=== PATIENT | male | born 1955 | race Caucasian/White ===

== ENCOUNTER 2017-06-23 20:42 | Emergency (ER) | payer MEDICAID ==
[~2017-06-23] VITALS: Ht 180.3 cm; Wt 81.6 kg
[2017-06-23 21:48] LABS: Basophils # (auto) 0.1 uL; Basophils % (auto) 1.2 % (0.0-2.0); Eosinophils # (auto) 0.1 uL; Eosinophils % (auto) 1.9 % (0.0-7.0); Hematocrit 50.5 % (41.0-53.0); Hemoglobin 17.4 g/dL (13.5-17.5); Lymphocytes # (auto) 1.3 uL; Lymphocytes % (auto) 17.9 % (10.0-50.0); Mean Corpuscular Hemoglobin 32.6 pg (28.0-32.0); Mean Corpuscular Hgb Conc. 34.5 g/dL (32.0-36.0); Mean Corpuscular Volume 94.3 fL (80.0-100.0); Mean Platelet Volume 8.5 fL (6.9-10.8); Monocytes # (auto) 0.6 uL; Neutrophils # (auto) 5.3 uL; Nucleated Red Blood Cells % 0.1 %; Platelet Count (auto) 304 10^3/uL (140-450); Red Cell Distribution Width 13.6 % (11.8-14.3); White Blood Cell 7.4 10^3/uL (4.4-10.8)
[2017-06-23 22:17] LABS: Alkaline Phosphatase 83 U/L (45-117); Anion Gap 9 (5-15); Aspartate Aminotransferase 27 U/L (15-37); BUN/Creatinine Ratio 17.1; Bilirubin, Total 0.5 mg/dL (0.2-1.0); Blood Urea Nitrogen 21 mg/dL (7-18); Calcium 9.3 mg/dL (8.5-10.1); Carbon Dioxide 23 mmol/L (21-32); Chloride 104 mmol/L (98-107); GFR African American 77 mL/min; GFR Non-African American 64 mL/min; Glucose 144 mg/dL (74-106); Potassium 3.6 mmol/L (3.5-5.1); Sodium 136 mmol/L (136-145)
[2017-06-23 23:49] VITALS: BP 145/111
[2017-06-24 00:18] LABS: B-Type Natriuretic Peptide 25.7 pg/mL (0-100); Temperature: 20.7 C (20.0-25.0)
[2017-06-24 00:39] LABS: INR 0.98 (0.9-1.15); Partial Thromboplastin Time 25.8 sec (22.64-33.71); Prothrombin Time 10.7 sec (9.37-12.3)
[2017-06-24] MEDS ORDERED: MECLIZINE HCL 25 MG TAB PO ONE (01:45)
== END 2017-06-24 01:54 | disposition home or self-care (01) ==
LOC: ER 20:47
DX: E86.0 Dehydration (principal); I95.9 Hypotension, unspecified; I10 Essential (primary) hypertension; Z88.0 Allergy status to penicillin
CPT/HCPCS: 36415; 70450; 71010; 80053; 83735; 83880; 84484; 85025; 85610; 85730; 93005; 99285; J8597

== ENCOUNTER 2024-02-04 11:44 | Emergency (ER) | payer OTHER, MEDICAID ==
[~2024-02-04] VITALS: Ht 180.3 cm; Wt 79.4 kg
[~2024-02-04 11:44] MED LIST: IBUP-1456 PO; METH-1182 PO
[2024-02-04 12:54] LABS: Basophils # (auto) 0.1 10 ^3/uL (0-0.2); Basophils % (auto) 0.7 % (0.0-2.0); Eosinophils # (auto) 0.1 10 ^3/uL (0-0.8); Hematocrit 49.1 % (41.0-53.0); Hemoglobin 16.3 g/dL (13.5-17.5); Lymphocytes # (auto) 1.1 10 ^3/uL (0.4-5.4); Lymphocytes % (auto) 13.4 % (10.0-50.0); Mean Corpuscular Hemoglobin 32.3 pg (28.0-32.0); Mean Corpuscular Hgb Conc. 33.2 g/dL (32.0-36.0); Mean Corpuscular Volume 97.1 fL (80.0-100.0); Monocytes # (auto) 0.8 10 ^3/uL (0-1.3); Monocytes % (auto) 9.9 % (0.0-12.0); Neutrophils # (auto) 5.9 10 ^3/uL (1.6-8.6); Red Blood Cells 5.06 10^6/uL (4.5-5.90); Red Cell Distribution Width 13.4 % (11.8-14.3); White Blood Cell 7.9 10^3/uL (4.4-10.8)
[2024-02-04] MEDS: IOHEXOL 350 MG/ML 100ML IJ ONE (14:39)
[2024-02-04 15:29] LABS: Alanine Aminotransferase 21 U/L (7-40); Albumin 4.8 g/dL (3.2-4.8); Alkaline Phosphatase 70 U/L (46-116); Anion Gap 9 (5-15); Aspartate Aminotransferase 24 U/L (13-40); Blood Urea Nitrogen 15 mg/dL (9-23); Calcium 10.2 mg/dL (8.5-10.1); Carbon Dioxide 25 mmol/L (20-30); Chloride 106 mmol/L (98-107); Glucose 115 mg/dL (74-106); Potassium 4.3 mmol/L (3.5-5.1); Sodium 140 mmol/L (136-145)
[2024-02-04 15:30] LABS: Bilirubin, Total 1.2 mg/dL (0.2-1.0); Total Protein 7.4 g/dL (5.7-8.2)
[2024-02-04 20:10] VITALS: PULSE 67; RESP 16; O2SAT 97
[2024-02-04 20:20] VITALS: BP 138/94; PULSE 67; RESP 16; O2SAT 97
== END 2024-02-04 20:22 | disposition home or self-care (01) ==
LOC: ER 11:44
DX: I71.20 Thoracic aortic aneurysm, without rupture, unspecified (principal); R79.9 Abnormal finding of blood chemistry, unspecified; I10 Essential (primary) hypertension; Z88.0 Allergy status to penicillin
CPT/HCPCS: 36415; 71045; 71260; 74177; 80053; 83735; 84484; 85025; 85379; 99285; Q9967

== ENCOUNTER 2024-10-03 07:15 | Day surgery (SDC) | payer OTHER, MEDICAID ==
[2024-09-25 11:26] LABS: Basophils # (auto) 0.1 10 ^3/uL (0-0.2); Basophils % (auto) 0.8 % (0.0-2.0); Eosinophils # (auto) 0 10 ^3/uL (0-0.8); Eosinophils % (auto) 0.6 % (0.0-7.0); Hematocrit 47.2 % (41.0-53.0); Hemoglobin 16.2 g/dL (13.5-17.5); Lymphocytes # (auto) 0.8 10 ^3/uL (0.4-5.4); Mean Corpuscular Hemoglobin 33.6 pg (28.0-32.0); Mean Corpuscular Hgb Conc. 34.3 g/dL (32.0-36.0); Mean Corpuscular Volume 97.9 fL (80.0-100.0); Monocytes # (auto) 0.8 10 ^3/uL (0-1.3); Monocytes % (auto) 10.7 % (0.0-12.0); Neutrophils # (auto) 5.4 10 ^3/uL (1.6-8.6); Neutrophils % (auto) 75.9 % (37.0-80.0); Platelet Count (auto) 253 10^3/uL (140-450); Red Blood Cells 4.82 10^6/uL (4.5-5.90); Red Cell Distribution Width 13.3 % (11.8-14.3); White Blood Cell 7.1 10^3/uL (4.4-10.8)
[2024-09-25 11:29] LABS: INR 1.05 (0.9-1.15); Partial Thromboplastin Time 25.3 SEC (24.5-34.5); Prothrombin Time 11.1 sec (9.3-11.8)
[2024-09-25 11:42] LABS: Alanine Aminotransferase 23 U/L (7-40); Albumin 4.7 g/dL (3.2-4.8); Alkaline Phosphatase 73 U/L (46-116); Anion Gap 7 (5-15); Aspartate Aminotransferase 20 U/L (13-40); BUN/Creatinine Ratio 12.9 (10.0-20.0); Blood Urea Nitrogen 15 mg/dL (9-23); Calcium 10.3 mg/dL (8.7-10.4); Carbon Dioxide 29 mmol/L (20-31); Chloride 103 mmol/L (98-107); Potassium 3.8 mmol/L (3.5-5.1); Sodium 139 mmol/L (136-145); Total Protein 7.2 g/dL (5.7-8.2)
[2024-09-25 11:48] LABS: Bilirubin, Total 1.3 mg/dL (0.2-1.0); Glucose 118 mg/dL (74-106)
[~2024-10-03] VITALS: Ht 180.3 cm; Wt 70.3 kg
[~2024-10-03 07:15] MED LIST changes: +ALBUAER3 IN; +ATOR20TA PO; +BENA20TA12 PO; +LORA-1121 PO; +MECL1TAB42 PO; +TRAZ-228 PO
[2024-10-03] MEDS ORDERED: SODIUM CHLORIDE LOCK 10 ML ONE (07:53)
[2024-10-03] MEDS: LIDOCAINE VISCOUS 2% 15ML UD ONE (08:12)
[2024-10-03] MEDS: fentaNYL CITRATE 100 MCG/2 ML VL ONE (08:13)
[2024-10-03] MEDS: MIDAZOLAM HCL 5 MG/ML-1ML VIAL ONE (08:13)
[2024-10-03] MEDS: diphenhdrAMINE HCL 50 MG/1 ML VL ONE (08:13)
[2024-10-03 08:23] VITALS: PULSE 83; RESP 16; TEMP 97.7; O2SAT 97
--- NOTE | 2024-10-03 08:27 | DVHOP2 ---
Operative Report DATE OF OPERATION: 10/03/24 PROCEDURE: Upper Endoscopy with biopsy. PREOPERATIVE INDICATION: The patient is a 69 -year-old male undergoing endoscopy for chronic GERD and heartburn POSTOPERATIVE DIAGNOSES: 1. Patient had a 1 cm sliding-type hiatal hernia with irregular squamocolumnar junction and grade a erosive esophagitis at the GE junction from which biopsies were obtained 2. Mild gastroduodenitis with hyperemia erythema from which biopsies were obtained PROCEDURE PERFORMED BY: Senia Avila GI NURSE: Laura SCOPE: Olympus videoendoscope. ASA CLASS: 2. PREOPERATIVE MEDICATIONS: Versed 2 mg, Fentanyl 25 mcg, Benadryl 50 mg I administered moderate sedation throughout this _7_ minutes procedure. An independent trained observer pushed medications at my direction, and monitored the patient's level of consciousness and physiological status throughout. PROCEDURE IN DETAIL: After obtaining an informed consent, the patient was placed on left lateral decubitus position. The patient was then sedated with the above medications. A bite block was placed between his teeth. The endoscope was then passed through the oropharynx, into the esophagus, and through the stomach and pylorus up to the second and third part of the duodenum. The endoscope was then withdrawn. The 2nd and 3rd part of the duodenal were normal. Duodenal bulb and postbulbar area showed mild duodenitis. Duodenal biopsies were obtained. The pre-pyloric area and antrum showed mild antral gastritis with superficial erosions The patient also had mild gastritis in the body of the stomach. Gastric biopsies were obtained. On retroflexion a hiatal hernia was noted. The endoscope was then straightened withdrawn into the distal esophagus. Patient had a 1-2 cm sliding-type hiatal hernia with irregular squamocolumnar junction and grade a erosive esophagitis with superficial ulceration GE junction biopsies were obtained. The remaining distal and proximal esophagus and oropharynx were unremarkable The patient tolerated the procedure well without difficulty. COMPLICATIONS : None SPECIMENS: Duodenal biopsies Gastric biopsies GE junction biopsies DISPOSITION: Stable D/C to home PLAN: 1. Await for biopsy result 2. Will place pt on Protonix or Prilosec 20 mg p.o. daily 3. Lifestyle and dietary modifications for GERD 4. Resume GI soft diet advance as tolerated 5. Outpatient follow up with me in 4-6 weeks to review results and discuss further management SENIA AVILA MD Oct 03, 2024 08:27
[2024-10-03 08:50] VITALS: BP 91/64; PULSE 53; RESP 18; O2SAT 96
== END 2024-10-03 09:37 | disposition home or self-care (01) ==
LOC: GI 07:15
PROVIDERS: ATTEND Internal Medicine Gastroenterology
DX: R12 Heartburn (principal); K21.00 Gastro-esophageal reflux disease with esophagitis, without bleeding; K22.10 Ulcer of esophagus without bleeding; K44.9 Diaphragmatic hernia without obstruction or gangrene; K29.50 Unspecified chronic gastritis without bleeding; J45.909 Unspecified asthma, uncomplicated; F41.9 Anxiety disorder, unspecified; Z88.0 Allergy status to penicillin; Z90.49 Acquired absence of other specified parts of digestive tract; Z98.890 Other specified postprocedural states
CPT/HCPCS: 36415; 43239; 80053; 85025; 85610; 85730; 88305; 88312; 88342; J1200; J2250; J3010; J7030

== ENCOUNTER 2025-02-03 16:17 | Inpatient (IN) | payer OTHER, MEDICAID ==
[~2025-02-03] VITALS: Ht 180.3 cm; Wt 69.4 kg
[2025-02-03] MEDS: ASPirin 81 mg TAB PO ONE (16:45)
--- NOTE | 2025-02-03 16:46 | ED.PDOC ---
HPI Comments This is a 69-year-old male who comes in with chief complaint of chest pain which started last night. The pain has been somewhat off and on. He states that it is substernal and dull in nature. He states that the pain is an 8/10. Denies any shortness a breath, nausea or vomiting. The patient also denies any fever or cough. 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 Upon arrival, the patient was able to ambulate into the emergency department's without any difficulty. Chief Complaint: Chest Pain Time Seen by MD: 16:25 Primary Care Provider: UNKNOWN Reviewed Notes: Nurses Notes, Medications, Allergies (Allergies to penicillin) Allergies: Coded Allergies: Penicillins (Verified Allergy, Unknown, 06/23/17) Home Meds Active Scripts Methocarbamol (Methocarbamol) 750 Mg Tab, 750 MG PO BID, #20 TAB Prov:LESLEY KENNY 12/13/23 Ibuprofen (Ibuprofen) 800 Mg Tab, 1 TAB PO TID, #30 TAB Prov:LESLEY KENNY 12/13/23 Reported Medications Albuterol Sulfate (VENTOLIN MDI) 90 Mcg Ih, 90 MCG IN PRN, INH 09/25/24 Meclizine HCl (Meclizine 25) 25 Mg Tab, 25 MG PO, TAB 09/25/24 Lorazepam (ATIVAN TABLET) 0.5 Mg Tb, 0.5 MG PO, TAB 09/25/24 Atorvastatin Calcium (Lipitor) 20 Mg Tab, 20 MG PO DAILY, TAB 09/25/24 Benazepril & Hydrochlorothiazi (Benazepril Hcl/Hydrochlor) 1 Tab Tab, 1 TAB PO QAM, TAB 09/25/24 Trazodone Hcl (Trazodone Hcl) 100 Mg Tab, 100 MG PO QPM, TAB 09/25/24 Information Source: Patient Mode of Arrival: Ambulatory Severity: Moderate Timing: Hours Duration: Since onset Prehospital treatment: None Location: Substernal Radiation: No Radiation Quality: Other (Dull type chest pain) Onset: At Rest Cardiac Risk Factors: Hyperlipidemia, HTN PE Risk Factors: None History of: Similar pain in past Modifying Factors: Nothing Associated Signs and Symptoms: None Past Medical History PAST MEDICAL HISTORY: Anxiety, CAD, High Lipids, HTN Surgical History: Denies all surgeries Surgical History (Other): Carpal tunnel surgery on the left wrist Family History Family History: Reviewed,noncontributory to illness, Family hx of Cancer Social History Smoker: Non-Smoker Alcohol: Denies ETOH Use Drugs: Denies Drug Use Lives In: Home Constitutional: denies: chills, diaphoresis, fatigue, fever, malaise, sweats, weakness, others EENTM: denies: blurred vision, double vision, ear bleeding, ear discharge, ear drainage, ear pain, ear ringing, eye pain, eye redness, hearing loss, mouth pain, mouth swelling, nasal discharge, nose bleeding, nose congestion, nose pain, photophobia, tearing, throat pain, throat swelling, voice changes, others Respiratory: denies: cough, hemoptysis, orthopnea, SOB at rest, shortness of breath, SOB with excertion, stridor, wheezing, others Cardiovascular: reports: chest pain; denies: dizzy spells, diaphoresis, Dyspnea on exertion, edema, irregular heart beat, left arm pain, lightheadedness, palpitations, PND, syncope, others Gastrointestinal: denies: abdomen distended, abdominal pain, blood streaked bowels, constipated, diarrhea, dysphagia, difficulty swallowing, hematemesis, melena, nausea, poor appetite, poor fluid intake, rectal bleeding, rectal pain, vomiting, others Genitourinary: denies: burning, dysuria, flank pain, frequency, hematuria, incontinence, penile discharge, penile sore, pain, testicle pain, testicle swelling, urgency, others Neurological: denies: dizziness, fainting, headache, left sided numbness, left sided weakness, numbness, paresthesia, pre-existing deficit, right sided numbness, right sided weakness, seizure, speech problems, tingling, tremors, weakness, others Musculoskeletal: denies: back pain, gout, joint pain, joint swelling, muscle pain, muscle stiffness, neck pain, others Integumetry: denies: bruises, change in color, change in hair/nails, dryness, laceration, lesions, lumps, rash, wounds, others Allergic/Immunocompromised: denies: Difficulty Healing, Frequent Infections, Hives, Itching, others Hematologic/Lymphatic: denies: anemia, blood clots, easy bleeding, easy bruising, swollen glands, others Endocrine: denies: excessive hunger, excessive sweating, excessive thirst, excessive urination, flushing, intolerance to cold, intolerance to heat, unexplained weight gain, unexplained weight loss, others Psychiatric: denies: anxiety, bipolar disorder, depression, hopeless, panic disorder, schizophrenia, sleepless, suicidal, others Physical Exam General Appearance: Moderate Distress HEENT: Normal ENT Inspection, Pharynx Normal, TMs Normal Neck: Full Range of Motion, Non-Tender, Normal, Normal Inspection Respiratory: Chest Non-Tender, Lungs Clear, No Accessory Muscle Use, No Respiratory Distress, Normal Breath Sounds Cardiovascular: No Edema, No JVD, No Murmur, No Gallop, Normal Peripheral Pulses, Regular Rate/Rhythm Breast Exam: Deferred Gastrointestinal: No Organomegaly, Non Tender, No Pulsatile Mass, Normal Bowel Sounds, Soft Genitalia: Deferred Pelvic: Deferred Rectal: Deferred Extremities: No calf tenderness, Normal capillary refill, Normal inspection, Normal range of motion, Non-tender, No pedal edema Musculoskeletal : Apperance: Normal Neurologic: Alert, wheel cleaner II-XII nml as Tested, No Motor Deficits, Normal Affect, Normal Mood, No Sensory Deficits Cerebellar Function: Normal Reflexes: Normal Skin: Dry, Normal Color, Warm Lymphatic: No Adenopathy EKG EKG : Pulse Rate (adult): 90 [place]: Normal Cardiac Rhythm: NSR ST: Nonsp (LAFB) Was a procedure done? Was a procedure done?: No CP Differential Dx Differential Diagnosis: Angina, SD, Pulmonary Embolus Differential Diagnosis: CHF Differential Diagnosis: Pericarditis X-Ray, Labs, Meds, VS Vital Signs Date Time Temp Pulse Resp B/P (MAP) Pulse Ox O2 Delivery O2 Flow Rate FiO2 02/03/25 17:20 67 02/03/25 16:46 90 02/03/25 16:24 90 02/03/25 16:23 99.2 76 20 116/80 (92) 98 99.2 Lab Test 02/03/25 19:26 02/03/25 17:26 02/03/25 16:32 Range/Units Troponin I High Sensitivity Pending < 3 L < 3 L </=54 ng/L White Blood Count 7.1 4.4-10.8 10^3/uL Red Blood Count 4.73 4.5-5.90 10^6/uL Hemoglobin 15.6 13.5-17.5 g/dL Hematocrit 46.1 41.0-53.0 % Mean Corpuscular Volume 97.4 80.0-100.0 fL Mean Corpuscular Hemoglobin 33.1 H 28.0-32.0 pg Mean Corpuscular Hemoglobin Concent 33.9 32.0-36.0 g/dL Red Cell Distribution Width 13.4 11.8-14.3 % Platelet Count 240 140-450 10^3/uL Mean Platelet Volume 8.1 6.9-10.8 fL Neutrophils (%) (Auto) 76.4 37.0-80.0 % Lymphocytes (%) (Auto) 13.7 10.0-50.0 % Monocytes (%) (Auto) 8.4 0.0-12.0 % Eosinophils (%) (Auto) 0.9 0.0-7.0 % Basophils (%) (Auto) 0.6 0.0-2.0 % Neutrophils # (Auto) 5.4 1.6-8.6 10 ^3/uL Lymphocytes # (Auto) 1.0 0.4-5.4 10 ^3/uL Monocytes # (Auto) 0.6 0-1.3 10 ^3/uL Eosinophils # (Auto) 0.1 0-0.8 10 ^3/uL Basophils # (Auto) 0 0-0.2 10 ^3/uL Nucleated Red Blood Cells 0.2 % Sodium Level 142 136-145 mmol/L Potassium Level 3.6 3.5-5.1 mmol/L Chloride Level 104 98-107 mmol/L Carbon Dioxide Level 30 20-31 mmol/L Anion Gap 8 5-15 Blood Urea Nitrogen 16 9-23 mg/dL Creatinine 1.15 0.700-1.30 mg/dL Glomerular Filtration Rate Calc 69 >90 mL/min BUN/Creatinine Ratio 13.9 10.0-20.0 Serum Glucose 122 H 74-106 mg/dL Calcium Level 9.9 8.7-10.4 mg/dL Triglycerides Level Pending Cholesterol Level Pending LDL Cholesterol Pending HDL Cholesterol Pending Thyroid Stimulating Hormone (TSH) Pending IV Hep-Lock was established. The patient is being given aspirin here in the emergency department's The patient was given aspirin here in the emergency department's The patient's CBC is within normal limits The chemistry panel is within normal limits. The troponin level x2 is negative At this time, the patient is being given aspirin The patient is being admitted to the hospitalist The diagnosis acute myocardial ischemia Images Reviewed?: Images reviewed and evaluated by me Time of 1ST Reevaluation: 16:45 Reevaluation 1ST: Unchanged Patient Education/Counseling: Diagnosis, Treatment, Prognosis Family Education/Counseling: No Family Present Departure 1 Departure Time of Disposition: 19:39 Impression: Primary Impression: Acute myocardial ischemia Disposition: 09 ADMITTED INPATIENT Admit to: [facility] Condition: Fair Critical Care Note Critical Care Time?: Yes (35 min-critical care time only) Stability Stability form required: Yes Unstable for transfer: Telemetry monitoring (Telemetry monitoring required), ED Physician Assesment (Clinical assesment) Heart Score Heart Score: Heart Score Response (Comments) Value History Moderate Suspicious 1 EKG Repolarization Disturb 1 Age >65 2 Risk Factors >3 or Hx ASHD 2 Troponin Normal limit 0 Total 6 SYLWIA SALAZAR MD February 03, 2025 16:46
[2025-02-03 17:00] LABS: Basophils # (auto) 0 10 ^3/uL (0-0.2); Basophils % (auto) 0.6 % (0.0-2.0); Eosinophils # (auto) 0.1 10 ^3/uL (0-0.8); Eosinophils % (auto) 0.9 % (0.0-7.0); Hematocrit 46.1 % (41.0-53.0); Hemoglobin 15.6 g/dL (13.5-17.5); Lymphocytes % (auto) 13.7 % (10.0-50.0); Mean Corpuscular Hemoglobin 33.1 pg (28.0-32.0); Mean Corpuscular Hgb Conc. 33.9 g/dL (32.0-36.0); Mean Corpuscular Volume 97.4 fL (80.0-100.0); Monocytes # (auto) 0.6 10 ^3/uL (0-1.3); Monocytes % (auto) 8.4 % (0.0-12.0); Neutrophils # (auto) 5.4 10 ^3/uL (1.6-8.6); Neutrophils % (auto) 76.4 % (37.0-80.0); Nucleated Red Blood Cells % 0.2 %; Platelet Count (auto) 240 10^3/uL (140-450); Red Blood Cells 4.73 10^6/uL (4.5-5.90); Red Cell Distribution Width 13.4 % (11.8-14.3); White Blood Cell 7.1 10^3/uL (4.4-10.8)
[2025-02-03 17:09] LABS: Chloride 104 mmol/L (98-107); Potassium 3.6 mmol/L (3.5-5.1); Sodium 142 mmol/L (136-145)
[2025-02-03 17:10] LABS: Anion Gap 8 (5-15); Calcium 9.9 mg/dL (8.7-10.4); Carbon Dioxide 30 mmol/L (20-31)
--- NOTE | 2025-02-03 17:13 | DVH ---
CHEST RADIOGRAPH Indication: chest pain Technique: Single frontal view of the chest was obtained Comparison: XY CHEST PORTABLE on DOS: 02/04/24 FINDINGS: Lines and Tubes: None Lungs: No focal consolidation. Pleura: No effusion. No pneumothorax. Cardiomediastinal contours: Unremarkable Bones: No acute osseous abnormality. IMPRESSION: No acute cardiopulmonary disease.
[2025-02-03 17:15] LABS: BUN/Creatinine Ratio 13.9 (10.0-20.0); Blood Urea Nitrogen 16 mg/dL (9-23); Glucose 122 mg/dL (74-106)
--- NOTE | 2025-02-03 17:21 | ECG ---
[facility] Test Date: 2025-02-03 Test Time: 17:20:42 Pat Name: JEREMÍAS QURESHI Department: ER Room: 0288T Gender: M Manager Social: GP : [id number] Requested By: SYLWIA SALAZAR Order Number: [id number] Reading MD: Berhane Nicole Measurements Intervals [place] Rate: 67 P: 66 WI: 160 QRS: -88 QRSD: 106 T: 63 QT: 391 QTc: 413 Interpretive Statements Sinus rhythm LAD, consider left anterior fascicular block Probable anterior infarct, old Baseline wander in lead(s) V6 Electronically Signed On 02-04-2025 12:48:45 PDT by Berhane Nicole Please click the below link to view image of tracing.
[2025-02-03] MEDS ORDERED: ONDANSETRON HCL 4 MG/2 ML VIAL IV PRN (19:15)
[2025-02-03] MEDS ORDERED: NITROGLYCERIN 0.4 MG SL TAB SL PRN (19:15)
[2025-02-03] MEDS ORDERED: MORPHINE SULFATE INJ 2 MG/ml SYRG IV PRN (19:15)
[2025-02-03 19:37] LABS: LDL Cholesterol 42 mg/dL (< 100); Triglycerides 85 mg/dL (< 150)
[2025-02-03 19:38] LABS: Cholesterol 116 mg/dL (< 200)
[2025-02-03 19:39] LABS: HDL Cholesterol 55 mg/dL (40-59)
--- NOTE | 2025-02-03 23:54 | DVHHP2 ---
History of Present Illness Reason for Visit: Chest pain History of Present Illness 69-year-old male presents for evaluation of chest pain. Patient reports a two day history of substernal sharp chest pain that is intermittent and nonradiating. Denies nausea or vomiting. No shortness a breath. Past Medical History Dyslipidemia, CAD, hypertension Past Surgical History Left wrist surgery Family History Noncontributory Smoke: No ALCOHOL: none Drugs: None Lives: with Family Review of Systems Review of Systems Review of systems are currently negative otherwise addressed in HPI. Allergies: Coded Allergies: Penicillins (Verified Allergy, Unknown, 06/23/17) Medications Current Medications Medications Dose Ordered Sig/Pradip Route Start Time Stop Time Status Last Admin Dose Admin Benazepril HCl 20 mg DAILY PO 02/04/25 10:00 Hydrochlorothiazide 25 mg QAM PO 02/04/25 07:00 Atorvastatin Calcium 20 mg HS PO 02/03/25 22:00 Aspirin 81 mg DAILY PO 02/04/25 10:00 Ondansetron HCl 4 mg Q4HP PRN IV 02/03/25 19:15 Acetaminophen 650 mg Q6HP PRN PO 02/03/25 19:15 Nitroglycerin 0.4 mg Q5MINP PRN SL 02/03/25 19:15 Morphine Sulfate 2 mg Q30M PRN IV 02/03/25 19:15 Exam Vital Signs Vital Signs Date Time Temp Pulse Resp B/P (MAP) Pulse Ox O2 Delivery O2 Flow Rate FiO2 02/03/25 17:20 67 02/03/25 16:23 99.2 20 116/80 (92) 98 99.2 Exam Gen: 69-year-old male in no apparent distress. Skin: Warm, dry, normal color and texture, no rash. HEENT: Normocephalic atraumatic, mucous membranes moist and pink. Neck: Cervical and supraclavicular nodes normal without enlargement, trachea is midline, thyroid gland is normal without masses. Pulmonary: Clear to auscultation and percussion bilaterally. Cardiac: Regular rate and rhythm. No murmur Abdomen: Soft, nontender, nondistended, bowel sounds present all 4 quadrants, no guarding, no rigidity, no organomegaly. Extremities: No cyanosis, clubbing, no edema Neuro: Cranial nerves II through XII grossly intact, normal affect and speech, no focal motor deficits. Labs/Xrays ORDERING PHYSICIAN: SYLWIA SALAZAR MD PROCEDURE(s): CXRP - CHEST PORTABLE REASON: chest pain ORDER NUMBER(s): [id number], ACCESSION NUMBER(s): [id number] CHEST RADIOGRAPH Indication: chest pain Technique: Single frontal view of the chest was obtained Comparison: XY CHEST PORTABLE on DOS: 02/04/24 FINDINGS: Lines and Tubes: None Lungs: No focal consolidation. Pleura: No effusion. No pneumothorax. Cardiomediastinal contours: Unremarkable Bones: No acute osseous abnormality. IMPRESSION: No acute cardiopulmonary disease. Labs Test 02/03/25 19:26 02/03/25 16:32 Range/Units Troponin I High Sensitivity < 3 L </=54 ng/L White Blood Count 7.1 4.4-10.8 10^3/uL Red Blood Count 4.73 4.5-5.90 10^6/uL Hemoglobin 15.6 13.5-17.5 g/dL Hematocrit 46.1 41.0-53.0 % Mean Corpuscular Volume 97.4 80.0-100.0 fL Mean Corpuscular Hemoglobin 33.1 H 28.0-32.0 pg Mean Corpuscular Hemoglobin Concent 33.9 32.0-36.0 g/dL Red Cell Distribution Width 13.4 11.8-14.3 % Platelet Count 240 140-450 10^3/uL Mean Platelet Volume 8.1 6.9-10.8 fL Neutrophils (%) (Auto) 76.4 37.0-80.0 % Lymphocytes (%) (Auto) 13.7 10.0-50.0 % Monocytes (%) (Auto) 8.4 0.0-12.0 % Eosinophils (%) (Auto) 0.9 0.0-7.0 % Basophils (%) (Auto) 0.6 0.0-2.0 % Neutrophils # (Auto) 5.4 1.6-8.6 10 ^3/uL Lymphocytes # (Auto) 1.0 0.4-5.4 10 ^3/uL Monocytes # (Auto) 0.6 0-1.3 10 ^3/uL Eosinophils # (Auto) 0.1 0-0.8 10 ^3/uL Basophils # (Auto) 0 0-0.2 10 ^3/uL Nucleated Red Blood Cells 0.2 % Sodium Level 142 136-145 mmol/L Potassium Level 3.6 3.5-5.1 mmol/L Chloride Level 104 98-107 mmol/L Carbon Dioxide Level 30 20-31 mmol/L Anion Gap 8 5-15 Blood Urea Nitrogen 16 9-23 mg/dL Creatinine 1.15 0.700-1.30 mg/dL Glomerular Filtration Rate Calc 69 >90 mL/min BUN/Creatinine Ratio 13.9 10.0-20.0 Serum Glucose 122 H 74-106 mg/dL Calcium Level 9.9 8.7-10.4 mg/dL Triglycerides Level 85 < 150 mg/dL Cholesterol Level 116 < 200 mg/dL LDL Cholesterol 42 < 100 mg/dL HDL Cholesterol 55 40-59 mg/dL Thyroid Stimulating Hormone (TSH) 0.60 0.55-4.78 uIU/mL Assessment/Plan Assessment/Plan Assessment Unstable angina Hypertension CAD Plan Admit the patient to telemetry to the hospitalist Cardiology consultation Resume home medications Echocardiogram pending Continue treatment per orders. Plan discussed with: Patient My Orders Orders - SHANTE RICHTER Procedure Category Date Status Time Benazepril Hcl Tablet PHA 02/04/25 In Process (Lotensin Tablet) 10:00 Hydrochlorothiazide PHA 02/04/25 In Process Tablet (Hydrochlorot 07:00 Atorvastatin (Lipitor) PHA 02/03/25 In Process 22:00 Aspirin Tablet PHA 02/04/25 In Process 10:00 Basic Metabolic Panel LAB 02/04/25 Verified 04:00 Admit ADMIT 02/03/25 Transmitted 19:05 Ondansetron Hcl PHA 02/03/25 In Process (Zofran) 19:15 Cardiac DIET 02/04/25 Transmitted Diet-2gna,Lofat,Lochol Breakfast Echo 2d Mode Cardiac US 02/03/25 Logged DOP 19:05 Condition: Fair [facility] 02/03/25 In Process 19:05 Acetaminophen Tablet PHA 02/03/25 In Process (Tylenol Tablet) 19:15 Bedrest With Bathroom [facility] 02/03/25 In Process Privileg 19:05 Nitroglycerin PHA 02/03/25 In Process Sublingual (Ntrostat 19:15 Morphine Sulfate PHA 02/03/25 In Process Injection 19:15 Stat Ekg For Chest [facility] 02/03/25 In Process Pain 19:05 Notify Md Of Changes [facility] 02/03/25 In Process From Base 19:05 Screwdown Operator For [facility] 02/03/25 In Process 24 Hours 19:05 Emergency Dysrhythmia [facility] 02/03/25 In Process Protocol 19:05 Rhythm Strips Once [facility] 02/03/25 In Process Every Shift 19:05 Oxygen By Nasal RT 02/03/25 Transmitted Cannula 19:05 Date of Service: February 03, 2025 Billing Provider: SHANTE RICHTER Common Visit Codes: [id number] INP/OBS CARE (HIGH) SHANTE RICHTER February 03, 2025 23:54
[2025-02-04 03:00] VITALS: BP 142/72; PULSE 67; RESP 16; TEMP 98.7; O2SAT 97
[2025-02-04 03:34] VITALS: PULSE 67
[2025-02-04 03:35] VITALS: BP 142/72; PULSE 67; RESP 16; TEMP 98.7; O2SAT 97
[2025-02-04] MEDS: hydroCHLOROthiazide 25 MG TAB PO SCH (05:52)
[2025-02-04] MEDS: ACETAMINOPHEN 325 MG TAB PO PRN (05:56)
[2025-02-04 06:36] LABS: Chloride 105 mmol/L (98-107); Potassium 3.8 mmol/L (3.5-5.1); Sodium 141 mmol/L (136-145)
[2025-02-04 06:37] LABS: Anion Gap 8 (5-15); Calcium 9.1 mg/dL (8.7-10.4); Carbon Dioxide 28 mmol/L (20-31)
[2025-02-04 06:42] LABS: BUN/Creatinine Ratio 18.2 (10.0-20.0); Blood Urea Nitrogen 18 mg/dL (9-23); Glucose 89 mg/dL (74-106)
[2025-02-04 07:30] VITALS: PULSE 62; PULSE 65; RESP 19; O2SAT 97
[2025-02-04] MEDS: BENAZEPRIL HCL 10 MG TAB PO SCH (10:16)
[2025-02-04] MEDS: ASPirin 81 mg TAB PO SCH (10:16)
--- NOTE | 2025-02-04 13:34 | DVHPN2 ---
Reviewed: Care Plan, H&P, Labs, Medications, Previous Orders, Radiology Changes from previous H/P or p: No Changes Objective Vitals Vital Signs Date Time Temp Pulse Resp B/P (MAP) Pulse Ox O2 Delivery O2 Flow Rate FiO2 02/04/25 10:16 134/80 02/04/25 07:30 62 19 97 Room Air* 0 21 02/04/25 03:35 98.7 98.7 Intake/Output Intake and Output 02/04/25 07:00 Intake Total 0 ml Balance 0 ml Intake Oral 0 ml # Voids 1 Medications Current Medications Medications Dose Ordered Sig/Pradip Route Start Time Stop Time Status Last Admin Dose Admin Benazepril HCl 20 mg DAILY PO 02/04/25 10:00 02/04/25 10:16 20 MG Hydrochlorothiazide 25 mg QAM PO 02/04/25 07:00 02/04/25 05:52 25 MG Atorvastatin Calcium 20 mg HS PO 02/03/25 22:00 Aspirin 81 mg DAILY PO 02/04/25 10:00 02/04/25 10:16 81 MG Ondansetron HCl 4 mg Q4HP PRN IV 02/03/25 19:15 Acetaminophen 650 mg Q6HP PRN PO 02/03/25 19:15 02/04/25 05:56 650 MG Nitroglycerin 0.4 mg Q5MINP PRN SL 02/03/25 19:15 Morphine Sulfate 2 mg Q30M PRN IV 02/03/25 19:15 Laboratory Results Laboratory Tests 02/03/25 16:32 02/04/25 05:49 Chemistry Test 02/03/25 16:32 02/04/25 05:49 Calcium Level 9.9 mg/dL (8.7-10.4) 9.1 mg/dL (8.7-10.4) Lipid panel Test 02/03/25 16:32 Cholesterol Level 116 mg/dL (< 200) HDL Cholesterol 55 mg/dL (40-59) Triglycerides Level 85 mg/dL (< 150) HgA1c, TSH Test 02/03/25 16:32 Thyroid Stimulating Hormone (TSH) 0.60 uIU/mL (0.55-4.78) Labs and/or images reviewed: Labs reviewed by me, Image(s) reviewed by me Assessment/Plan Assessment/Plan Unstable angina: Treatment per ACS protocol, troponin negative x3, cardiology, consult Hypertension CAD Hypercholesterolemia Plan discussed with: Patient Date of Service: February 04, 2025 Billing Provider: LOLI JIMENEZ MD Common Visit Codes: [id number] INP/OBS CARE(HIGH) LOLI JIMENEZ MD February 04, 2025 13:34
--- NOTE | 2025-02-04 14:26 | DVHINCON2 ---
[facility] 02/04/25 1426: Date Seen: February 04, 2025 Referring Physician MD Chevy Reason for Consultation Chest pain with risk factors History of Present Illness This is a 69-year-old man who presented to the emergency room with a chief complaint of chest pain. Describes his chest pain as substernal, nonradiating, non provoked, sharp/stabbing in nature, intermittent, and an associated with any other symptoms. Taking a deep breath or movement does not make the pain any worse. Denies SOB, palpitations, diaphoresis, dizziness, or syncopal events. He underwent multiple 12 lead electrocardiograms x2 revealing a sinus rhythm with a left anterior fascicular block. Serial troponin levels are negative. Follows up with primary sales review clerk at [facility] where he has undergone multiple transthoracic echocardiograms and a cardiac MRI all with unremarkable findings. States he underwent a non-ischemic stress test years ago. Denies a previous cardiac catheterization. Significant medical history includes hypertension, dyslipidemia, asthma, and anxiety. Other providers documented hx of CAD which the patient denies. Past Medical History Past medical history reviewed. No other significant than mentioned above. Past Surgical History Left carpal tunnel Family History: FH: cancer G8 MOTHER G8 FATHER Family History Family history reviewed. Not significant for cardiovascular disease. Social History Denies the use of illicit drugs, alcohol, or tobacco use. Allergies: Coded Allergies: Penicillins (Verified Allergy, Unknown, 06/23/17) Home Meds Active Scripts Methocarbamol (Methocarbamol) 750 Mg Tab, 750 MG PO BID, #20 TAB Prov:LESLEY KENNY 12/13/23 Ibuprofen (Ibuprofen) 800 Mg Tab, 1 TAB PO TID, #30 TAB Prov:LESLEY KENNY 12/13/23 Reported Medications Albuterol Sulfate (VENTOLIN MDI) 90 Mcg Ih, 90 MCG IN PRN, INH 09/25/24 Meclizine HCl (Meclizine 25) 25 Mg Tab, 25 MG PO, TAB 09/25/24 Lorazepam (ATIVAN TABLET) 0.5 Mg Tb, 0.5 MG PO, TAB 09/25/24 Atorvastatin Calcium (Lipitor) 20 Mg Tab, 20 MG PO DAILY, TAB 09/25/24 Benazepril & Hydrochlorothiazi (Benazepril Hcl/Hydrochlor) 1 Tab Tab, 1 TAB PO QAM, TAB 09/25/24 Trazodone Hcl (Trazodone Hcl) 100 Mg Tab, 100 MG PO QPM, TAB 09/25/24 Home Meds Home medications reviewed. Current Medications Current Medications Medications (Trade) Dose Ordered Sig/Pradip Route PRN Reason Start Time Stop Time Status Last Admin Benazepril HCl (Lotensin Tablet) 20 mg DAILY PO 02/04/25 10:00 02/04/25 10:16 Hydrochlorothiazide (hydroCHLOROthiazide TABLET) 25 mg QAM PO 02/04/25 07:00 02/04/25 05:52 Atorvastatin Calcium (Lipitor) 20 mg HS PO 02/03/25 22:00 Aspirin 81 mg DAILY PO 02/04/25 10:00 02/04/25 10:16 Ondansetron HCl (Zofran) 4 mg Q4HP PRN IV NAUSEA / VOMITING 02/03/25 19:15 Acetaminophen (Tylenol Tablet) 650 mg Q6HP PRN PO PAIN SCALE 1-3 OR TEMP>100.4 02/03/25 19:15 02/04/25 05:56 Nitroglycerin (Ntrostat Sublingual) 0.4 mg Q5MINP PRN SL FOR CHEST PAIN 02/03/25 19:15 Morphine Sulfate 2 mg Q30M PRN IV FOR CHEST PAIN 02/03/25 19:15 Review of Systems Constitutional: No symptom reported Ears, Nose, & Throat: No symptom reported Eyes: No symptom reported Neurological: No symptoms reported Pulmonary/Respiratory: No symptom reported Cardiovascular: Chest pain Gastrointestinal: No symptom reported Genitourinary: No symptom reported Musculoskeletal: No symptom reported Skin: No symptom reported Psychiatric: No symptom reported Endocrine: No symptom reported Hemotologic/Lymphatic: No symptom reported Vital Signs Vital Signs Date Time Temp Pulse Resp B/P (MAP) Pulse Ox O2 Delivery O2 Flow Rate FiO2 02/04/25 10:16 134/80 02/04/25 07:30 62 19 97 Room Air* 0 21 02/04/25 03:35 98.7 98.7 Physical Exam General Appearance: Cooperative. Well developed. Well nourished. In no acute distress Head Exam: Normal inspection Neck Exam: Normal inspection. Non-tender. Normal alignment Pulmonary/Respiratory: Chest non-tender. Clear bilateral breath sounds Cardiovascular/Chest: Regular rate and rhythm. S1, S2. Sinus rhythm with left anterior fascicular block. No murmurs. No JVD. Peripheral Pulses: 2+ Radial (R). 2+ Radial (L). 2+ Pedal (R). 2+ Pedal (L) Abdominal Exam: Normal bowel sounds. Soft. Nontender. No hepatospenomegaly. No masses Ankle Exam: Negative ankle edema Lower extremities: Negative lower extremity edema Neuro/Mental Status: A&O x4. Coherent Thoughts/Psych: Normal thought pattern. Appropriate mood and affect. Good judgement and insight Appearance: In no acute distress Skin Exam: Normal inspection. Normal color. Warm. Dry Labs/Diagnostic Data Labs Test 02/04/25 05:49 02/03/25 19:26 02/03/25 16:32 Range/Units Sodium Level 141 136-145 mmol/L Potassium Level 3.8 3.5-5.1 mmol/L Chloride Level 105 98-107 mmol/L Carbon Dioxide Level 28 20-31 mmol/L Anion Gap 8 5-15 Blood Urea Nitrogen 18 9-23 mg/dL Creatinine 0.99 0.700-1.30 mg/dL Glomerular Filtration Rate Calc 83 >90 mL/min BUN/Creatinine Ratio 18.2 10.0-20.0 Serum Glucose 89 74-106 mg/dL Calcium Level 9.1 8.7-10.4 mg/dL Troponin I High Sensitivity < 3 L </=54 ng/L White Blood Count 7.1 4.4-10.8 10^3/uL Red Blood Count 4.73 4.5-5.90 10^6/uL Hemoglobin 15.6 13.5-17.5 g/dL Hematocrit 46.1 41.0-53.0 % Mean Corpuscular Volume 97.4 80.0-100.0 fL Mean Corpuscular Hemoglobin 33.1 H 28.0-32.0 pg Mean Corpuscular Hemoglobin Concent 33.9 32.0-36.0 g/dL Red Cell Distribution Width 13.4 11.8-14.3 % Platelet Count 240 140-450 10^3/uL Mean Platelet Volume 8.1 6.9-10.8 fL Neutrophils (%) (Auto) 76.4 37.0-80.0 % Lymphocytes (%) (Auto) 13.7 10.0-50.0 % Monocytes (%) (Auto) 8.4 0.0-12.0 % Eosinophils (%) (Auto) 0.9 0.0-7.0 % Basophils (%) (Auto) 0.6 0.0-2.0 % Neutrophils # (Auto) 5.4 1.6-8.6 10 ^3/uL Lymphocytes # (Auto) 1.0 0.4-5.4 10 ^3/uL Monocytes # (Auto) 0.6 0-1.3 10 ^3/uL Eosinophils # (Auto) 0.1 0-0.8 10 ^3/uL Basophils # (Auto) 0 0-0.2 10 ^3/uL Nucleated Red Blood Cells 0.2 % Triglycerides Level 85 < 150 mg/dL Cholesterol Level 116 < 200 mg/dL LDL Cholesterol 42 < 100 mg/dL HDL Cholesterol 55 40-59 mg/dL Thyroid Stimulating Hormone (TSH) 0.60 0.55-4.78 uIU/mL Assessment Chest pain rule out coronary ischemia Rule out structural heart disease Hypertension Dyslipidemia Anxiety Plan/Recommendation (Dr. Baldwin) The patient presents with a heart score of four points placing him at a moderate risk for major cardiac events. Scheduled for a transthoracic echocardiogram to rule out structural heart disease and a treadmill stress test with Cardiolite rule out coronary ischemia. In the meantime, monitor ECG changes and notify. Rest of plan per clinical course. Thank you for allowing us to participate in this patient's care. Please call if you have any questions or concerns. This medical document was created using an electronic medical record system with voice recognition software and computerized dictation system. Although this document has been carefully reviewed, there might still be some phonetic and typographical errors. Occasional wrong-word or ``sound-alike substitutions may have occurred due to the inherent limitations of voice recognition software. These areas are purely typographical due to imperfections of the software programs and do not reflect any compromise in the patient's medical care. Please read the chart carefully and recognize, using context, where these substitutions have occurred. Plan discussed with: Patient, Other NYHA Physical activity limitations: NA Date of Service: February 04, 2025 Billing Provider: [facility] Cardiology Common Codes: [id number] INP/OBS CARE (High) BETZY DE PAZ DO 02/04/253: Date Seen: February 04, 2025 Family History: FH: cancer G8 MOTHER G8 FATHER Allergies: Coded Allergies: Penicillins (Verified Allergy, Unknown, 06/23/17) Home Meds Active Scripts Methocarbamol (Methocarbamol) 750 Mg Tab, 750 MG PO BID, #20 TAB Prov:MICHELLE KENNYMorenita DE LA TORRE 12/13/23 Ibuprofen (Ibuprofen) 800 Mg Tab, 1 TAB PO TID, #30 TAB Prov:LESLEY KENNY 12/13/23 Reported Medications Albuterol Sulfate (VENTOLIN MDI) 90 Mcg Ih, 90 MCG IN PRN, INH 09/25/24 Meclizine HCl (Meclizine 25) 25 Mg Tab, 25 MG PO, TAB 09/25/24 Lorazepam (ATIVAN TABLET) 0.5 Mg Tb, 0.5 MG PO, TAB 09/25/24 Atorvastatin Calcium (Lipitor) 20 Mg Tab, 20 MG PO DAILY, TAB 09/25/24 Benazepril & Hydrochlorothiazi (Benazepril Hcl/Hydrochlor) 1 Tab Tab, 1 TAB PO QAM, TAB 09/25/24 Trazodone Hcl (Trazodone Hcl) 100 Mg Tab, 100 MG PO QPM, TAB 09/25/24 Plan/Recommendation Patient was discussed with CARMEN Jay. I agree with her Assessment and Plan, which was formulated with me. Date of Service: February 04, 2025 Billing Provider: BETZY DE PAZ DO Cardiology Common Codes: [id number] INP/OBS CARE (High) [facility] February 04, 2025 14:26 BETZY DE PAZ DO February 04, 2025 21:43
[2025-02-04 20:00] VITALS: PULSE 83
[2025-02-04] MEDS: traZODone HCL 50 MG TAB PO ONE (22:25)
[2025-02-04] MEDS: ATORVASTATIN 20 MG TAB PO SCH (22:25)
[2025-02-05 07:30] VITALS: PULSE 56; PULSE 58; RESP 18; O2SAT 98
[2025-02-05 09:00] VITALS: BP 104/70; PULSE 81; RESP 18; TEMP 97.4; O2SAT 98
--- NOTE | 2025-02-05 09:25 | DVHCARD ---
Cardiology Stress Test [place] Treadmill Stress Test [place] Referring MD: MARY West Protocol: Mod. lorri (with cardiolite) Reason for referral: Chest Pain Target heart Rate:@85%: 129 Percent MPHR: 152 METS: 4.60 Resting Heart rate: 70 Resting Blood Pressure: 112/5 Exercise Heart Rate: 131 Exercise Blood Pressure: 129/79 Reason for Termination of Test: Completion of Protocol Baseline EKG: NSR with notches p-waves Stress EKG: Sinus tachycardia w/o discernible ST-T segment changes Functional Capacity: Good Normal Heart Rate Response: Adequate Blood Pressure Response: Normal Clinical response: Non-ischemic Arrhythmia?: No Cardiolite Injected?: Yes ST-T Changes: Non/Minimal Probability of Inducible Ische: Perfusion result pending Comments: Uneventful modified Lorri protocol Date of Service: February 05, 2025 Billing Provider: [facility] Cardiology Common Codes: PROCEDURE ONLY Treadmill W/Cardiolite Nuclear: [id number], INTERP, RPT [facility] February 05, 2025 09:25
--- NOTE | 2025-02-05 09:44 | ECG ---
[facility] Test Date: 2025-02-03 Test Time: 16:24:00 Pat Name: JEREMÍAS QURESHI Department: ER Room: [facility]8T B Gender: M Boiler Testing Technician: BERNICE : 1955 Requested By: SYLWIA SALAZAR Order Number: [id number] Reading MD: Berhane Nicole Measurements Intervals Burke Rate: 90 P: 71 IA: 162 QRS: 265 QRSD: 102 T: 62 QT: 362 QTc: 443 Interpretive Statements Sinus rhythm Left anterior fascicular block Anterior infarct, old Electronically Signed On 02-05-2025 13:10:49 PDT by Berhane Nicole Please click the below link to view image of tracing.
--- NOTE | 2025-02-05 10:47 | DVHPN2 ---
Reviewed: Care Plan, H&P, Labs, Medications, Previous Orders, Radiology Changes from previous H/P or p: No Changes Objective Vitals Vital Signs Date Time Temp Pulse Resp B/P (MAP) Pulse Ox O2 Delivery O2 Flow Rate FiO2 02/05/25 09:00 97.4 81 18 104/70 (81) 98 97.4 02/05/25 07:30 Room Air* 0 21 Intake/Output Intake and Output 02/05/25 07:00 Intake Total 1450 ml Balance 1450 ml Intake Oral 1450 ml # Voids 4 # Bowel Movements 1 Medications Current Medications Medications Dose Ordered Sig/Pradip Route Start Time Stop Time Status Last Admin Dose Admin Benazepril HCl 20 mg DAILY PO 02/04/25 10:00 02/04/25 10:16 20 MG Hydrochlorothiazide 25 mg QAM PO 02/04/25 07:00 02/04/25 05:52 25 MG Atorvastatin Calcium 20 mg HS PO 02/03/25 22:00 02/04/25 22:26 20 MG Aspirin 81 mg DAILY PO 02/04/25 10:00 02/04/25 10:16 81 MG Ondansetron HCl 4 mg Q4HP PRN IV 02/03/25 19:15 Acetaminophen 650 mg Q6HP PRN PO 02/03/25 19:15 02/04/25 05:56 650 MG Nitroglycerin 0.4 mg Q5MINP PRN SL 02/03/25 19:15 Morphine Sulfate 2 mg Q30M PRN IV 02/03/25 19:15 Laboratory Results Laboratory Tests 02/03/25 16:32 02/04/25 05:49 Labs and/or images reviewed: Labs reviewed by me, Image(s) reviewed by me Assessment/Plan Assessment/Plan Unstable angina: Treatment per ACS protocol, troponin negative x3, cardiology consult appreciated Hypertension CAD Hypercholesterolemia Anxiety Echocardiogram result pending Cardiolite stress test result pending Plan discussed with: Patient My Orders Orders - LOLI JIMENEZ MD Procedure Category Date Status Time * Cardiology Consult CONS 02/04/25 Transmitted 13:34 Date of Service: February 05, 2025 Billing Provider: LOLI JIMENEZ MD Common Visit Codes: [id number] INP/OBS CARE(HIGH) LOLI JIMENEZ MD February 05, 2025 10:47
--- NOTE | 2025-02-05 11:55 | DVHINCON2 ---
History of Present Illness This is a 69-year-old man who presented to the emergency room with a chief com plaint of chest pain. Describes his chest pain as substernal, nonradiating, non provoked, sharp/stabbing in nature, intermittent, and an associated with any other symptoms. Taking a deep breath or movement does not make the pain any worse. Denies SOB, palpitations, diaphoresis, dizziness, or syncopal events. He underwent multiple 12 lead electrocardiograms x2 revealing a sinus rhythm with a left anterior fascicular block. Serial troponin levels are negative. Follows up with primary campus president at [facility] where he has undergone multiple transthoracic echocardiograms and a cardiac MRI all with unremarkable findings. States he underwent a non-ischemic stress test years ago. Denies a previous cardiac catheterization. Significant medical history includes hypertension, dyslipidemia, asthma, and anxiety. Other providers documented hx of CAD which the patient denies. Family History: FH: cancer G8 MOTHER G8 FATHER Allergies: Coded Allergies: Penicillins (Verified Allergy, Unknown, 06/23/17) Home Meds Active Scripts Methocarbamol (Methocarbamol) 750 Mg Tab, 750 MG PO BID, #20 TAB Prov:LESLEY KENNY 12/13/23 Ibuprofen (Ibuprofen) 800 Mg Tab, 1 TAB PO TID, #30 TAB Prov:LESLEY KENNY 12/13/23 Reported Medications Albuterol Sulfate (VENTOLIN MDI) 90 Mcg Ih, 90 MCG IN PRN, INH 09/25/24 Meclizine HCl (Meclizine 25) 25 Mg Tab, 25 MG PO, TAB 09/25/24 Lorazepam (ATIVAN TABLET) 0.5 Mg Tb, 0.5 MG PO, TAB 09/25/24 Atorvastatin Calcium (Lipitor) 20 Mg Tab, 20 MG PO DAILY, TAB 09/25/24 Benazepril & Hydrochlorothiazi (Benazepril Hcl/Hydrochlor) 1 Tab Tab, 1 TAB PO QAM, TAB 09/25/24 Trazodone Hcl (Trazodone Hcl) 100 Mg Tab, 100 MG PO QPM, TAB 09/25/24 Current Medications Current Medications Medications (Trade) Dose Ordered Sig/Pradip Route PRN Reason Start Time Stop Time Status Last Admin Trazodone HCl (Desyrel) 100 mg HS PO 02/05/25 22:00 Review of Systems Constitutional: No symptom reported Ears, Nose, & Throat: No symptom reported Eyes: No symptom reported Neurological: No symptoms reported Pulmonary/Respiratory: No symptom reported Cardiovascular: Chest pain Gastrointestinal: No symptom reported Genitourinary: No symptom reported Musculoskeletal: No symptom reported Skin: No symptom reported Psychiatric: No symptom reported Endocrine: No symptom reported Hemotologic/Lymphatic: No symptom reported Vital Signs Vital Signs Date Time Temp Pulse Resp B/P (MAP) Pulse Ox O2 Delivery O2 Flow Rate FiO2 02/05/25 09:00 97.4 81 18 104/70 (81) 98 97.4 02/05/25 07:30 Room Air* 0 21 Labs/Diagnostic Data Labs Test 02/04/25 05:49 02/03/25 19:26 02/03/25 16:32 Range/Units Sodium Level 141 136-145 mmol/L Potassium Level 3.8 3.5-5.1 mmol/L Chloride Level 105 98-107 mmol/L Carbon Dioxide Level 28 20-31 mmol/L Anion Gap 8 5-15 Blood Urea Nitrogen 18 9-23 mg/dL Creatinine 0.99 0.700-1.30 mg/dL Glomerular Filtration Rate Calc 83 >90 mL/min BUN/Creatinine Ratio 18.2 10.0-20.0 Serum Glucose 89 74-106 mg/dL Hemoglobin A1c 5.1 <5.7 % A1C Calcium Level 9.1 8.7-10.4 mg/dL Magnesium Level 2.2 1.6-2.6 mg/dL B-Type Natriuretic Peptide 17.57 0-100 pg/mL Troponin I High Sensitivity < 3 L </=54 ng/L White Blood Count 7.1 4.4-10.8 10^3/uL Red Blood Count 4.73 4.5-5.90 10^6/uL Hemoglobin 15.6 13.5-17.5 g/dL Hematocrit 46.1 41.0-53.0 % Mean Corpuscular Volume 97.4 80.0-100.0 fL Mean Corpuscular Hemoglobin 33.1 H 28.0-32.0 pg Mean Corpuscular Hemoglobin Concent 33.9 32.0-36.0 g/dL Red Cell Distribution Width 13.4 11.8-14.3 % Platelet Count 240 140-450 10^3/uL Mean Platelet Volume 8.1 6.9-10.8 fL Neutrophils (%) (Auto) 76.4 37.0-80.0 % Lymphocytes (%) (Auto) 13.7 10.0-50.0 % Monocytes (%) (Auto) 8.4 0.0-12.0 % Eosinophils (%) (Auto) 0.9 0.0-7.0 % Basophils (%) (Auto) 0.6 0.0-2.0 % Neutrophils # (Auto) 5.4 1.6-8.6 10 ^3/uL Lymphocytes # (Auto) 1.0 0.4-5.4 10 ^3/uL Monocytes # (Auto) 0.6 0-1.3 10 ^3/uL Eosinophils # (Auto) 0.1 0-0.8 10 ^3/uL Basophils # (Auto) 0 0-0.2 10 ^3/uL Nucleated Red Blood Cells 0.2 % Triglycerides Level 85 < 150 mg/dL Cholesterol Level 116 < 200 mg/dL LDL Cholesterol 42 < 100 mg/dL HDL Cholesterol 55 40-59 mg/dL Thyroid Stimulating Hormone (TSH) 0.60 0.55-4.78 uIU/mL Assessment Chest pain rule out coronary ischemia Rule out structural heart disease Hypertension Dyslipidemia Anxiety [facility] February 05, 2025 11:55
[2025-02-05 13:00] VITALS: BP 114/69; PULSE 89; RESP 18; TEMP 97.9; O2SAT 96
--- NOTE | 2025-02-05 15:21 | DVHSR ---
APPROVED REPORT Exam: Nuclear Stress Test Indication: Chest pain BMI: 0 Medical History Medical History: Angina, CAD, HTN, Asthma, Hyperlipidemia Allergies: PCN Stress Test Details Stress Test: Exercise stress testing was performed using a modified Steve protocol. HR Resting HR: 70 bpmMax Heart Rate (APMHR): 152.417320 bpm Max HR Achieved: 131 bpmTarget HR (85% APMHR): 129.027650 bpm % of APMHR: 86.18 Recovery HR: 93 bpm BP Resting BP: 112/75 mmHg Recovery BP: 126/90 mmHg ECG Resting ECG: Sinus Rhythm Clinical Reason for Termination: Completed protocol Exercise duration: 9 min sec Nurse Comments -Recieved ambulatory, A/Ox4 on RA, connected to youth nutritional monitor, VS stable. PIV S/L flushes well, rev iewed POC, pt verbalized understanding. Jose Roberto ANTICHECKING IRON WORKER here to monitor exam. Treadmill test performed per protocol. Pt stable, tolerated well, VS returned to baseline. Pt to follow up with acquisition marketing manager for results. Stress ECG Conclusion ecg shows SR LAD normal perfusion scan lvef 64% NM EXAM: Myocardial Perfusion REST/STRESS Imaging Protocol: Rest Tc-99m/Stress Tc-99m 1 day Resting Data Rest SPECT myocardial perfusion imaging was performed in supine position 45 minutes following the int ravenous injection of 12.0 mCi of Tc-99m Sestamibi. Time of rest injection: 07:45 Date: 02/05/2025 Time of rest imagin:30 Date: 02/05/2025 Administration Route: IV Administration Site: Left Arm Pharmacologic Stress Pharmacologic stress test was performed by injecting Regadenoson 0.4 mg IV push followed by the intra venous injection of mCi of Exercise Stress At peak stress, the patient was injected intravenously with 32.0mCi of Tc-99m Sestamibi. Time of stress injection: 09:13 Date: 02/05/2025 Time of stress imagin:58 Date: 02/05/2025 Administration Route: IV Administration Site: Right Arm Heart Rate at time of stress injection: 110 bpm. Patient continued to exercise for 2.5 minute(s). Gated Stress SPECT was performed 45 minutes after stress injection. The images were gated to evaluate regional wall motion and calculate left ventricular ejection fracti on. Stress only was performed in the Supine position. Nuclear Conclusion Nuclear Findings: negative for ischemia ecg shows SR LAD normal perfusion scan lvef 64%
[2025-02-05 16:36] VITALS: BP 108/70; PULSE 69; RESP 18; TEMP 97.8; O2SAT 97
--- NOTE | 2025-02-05 17:18 | DVHPN2 ---
Consult Progress Note Date Seen: February 05, 2025 Subjective Review of Systems: CVS:Normal, RESPIRATORY:Normal, NEURO:Normal Objective vital signs Vital Sign Date Time Temp Pulse Resp B/P (MAP) Pulse Ox O2 Delivery O2 Flow Rate FiO2 02/05/25 16:36 97.8 69 18 108/70 (83) 97 97.8 02/05/25 07:30 Room Air* 0 21 Total Intake and Output 02/04/25 02/04/25 02/05/25 15:00 23:00 07:00 Intake Total 750 ml 700 ml Balance 750 ml 700 ml medications Current Medications Medications Dose Ordered Sig/Pradip Route Start Time Stop Time Status Last Admin Dose Admin Benazepril HCl 20 mg DAILY PO 02/04/25 10:00 02/04/25 10:16 20 MG Hydrochlorothiazide 25 mg QAM PO 02/04/25 07:00 02/04/25 05:52 25 MG Atorvastatin Calcium 20 mg HS PO 02/03/25 22:00 02/04/25 22:26 20 MG Aspirin 81 mg DAILY PO 02/04/25 10:00 02/04/25 10:16 81 MG Ondansetron HCl 4 mg Q4HP PRN IV 02/03/25 19:15 Acetaminophen 650 mg Q6HP PRN PO 02/03/25 19:15 02/04/25 05:56 650 MG Nitroglycerin 0.4 mg Q5MINP PRN SL 02/03/25 19:15 Morphine Sulfate 2 mg Q30M PRN IV 02/03/25 19:15 Trazodone HCl 100 mg HS PO 02/05/25 22:00 Examination: LUNGS:Normal, CVS:Normal, NEURO:Normal laboratory and microbiology Laboratory Tests 02/04/25 05:49 02/03/25 16:32 Test 02/04/25 05:49 Range/Units Serum Glucose 89 74-106 mg/dL Problem List/Assessment/Plan Problem List/Assessment/Plan Chest pain rule out coronary ischemia Rule out structural heart disease Hypertension Dyslipidemia Anxiety Plan/Recommendation (Dr. Nicole) Cardiolite stress test revealed LVEF of 64%, normal perfusion scan, negative for ischemia. Continue follow-up with primary mop machine operator as outpatient. In the setting of an unremarkable transthoracic echocardiogram, there is no further cardiac work-up indicated at this time. Kindly call with any questions or concerns. Thank you for allowing us to participate in this patient's care. This medical document was created using an electronic medical record system with voice recognition software and computerized dictation system. Although this document has been carefully reviewed, there might still be some phonetic and typographical errors. Occasional wrong-word or ``sound-alike substitutions may have occurred due to the inherent limitations of voice recognition software. These areas are purely typographical due to imperfections of the software programs and do not reflect any compromise in the patient's medical care. Please read the chart carefully and recognize, using context, where these substitutions have occurred. Plan discussed with: Patient, Other Date of Service: February 05, 2025 Billing Provider: [facility] Cardiology Common Codes: [id number] INP/OBS CARE(Mod) [facility] February 05, 2025 17:18
--- NOTE | 2025-02-05 17:30 | DVHSR ---
APPROVED REPORT EXAM: Two-dimensional and M-mode echocardiogram with Doppler and color Doppler. Blood Pressure: 142/72 mmHg INDICATION Chest Pain RISK FACTORS Height: 5'11", Weight: 148 DIMENSIONS LVDd5.5 (3.8-5.7cm)LA (2D)4.5 (1.9-4.0cm)Aortic Root3.5 (2.0-3.7cm) LVDs3.3 (2.5-4.0cm)LA (MM) (1.9-4.0cm)Aortic Cusp Exc2.0 (1.5-2.0cm) EF (%) 70.0 (55-70%)Rt. Atrium3.8 (1.9-4.0cm)Asc. Aorta4.0 cm IVSd0.6 (0.7-1.1cm)RV (D)3.5 (1.8-2.4cm) PWd0.7 (0.7-1.1cm) Mitral Valve MitralMitral Stenosis E wave0.71m/sMV Mean GR.mmHg A wave0.91m/sMV Peak GR.mmHg E/A ratio0.82D MVAcm2 DECEL [id number] 1/2 Timems Aortic Valve Aortic ValveAortic Stenosis V10.89m/Hector Mean GR.3mmHg V21.29m/Hector Peak GR.7mmHg LVOT Diameter2.0 (1.8-2.4cm)Doppler AVA2.17cm2 Pulmonic Valve V20.86m/s Conclusion Sinus rhythm. Aortic root enlargement. Mild RV enlargement. Left atrial enlargement. Valves are normal. EF of 60% with normal RV function. Normal Doppler. Mild TR. No pericardial effusion masses or vegetations.
[2025-02-05 20:00] VITALS: PULSE 73; PULSE 79; RESP 18; O2SAT 97
[2025-02-05 21:00] VITALS: BP 112/78; PULSE 79; RESP 18; TEMP 98.4; O2SAT 97
[2025-02-05] MEDS: traZODone HCL 50 MG TAB PO SCH (21:08)
[2025-02-06 01:00] VITALS: BP 107/79; PULSE 72; RESP 18; TEMP 97.6; O2SAT 95
[2025-02-06 05:00] VITALS: BP 99/63; PULSE 62; RESP 18; TEMP 98; O2SAT 96
[2025-02-06 08:00] VITALS: PULSE 55; PULSE 59; RESP 20; O2SAT 99
[2025-02-06 09:00] VITALS: BP 100/64; PULSE 59; RESP 20; TEMP 98.4; O2SAT 99
--- NOTE | 2025-02-06 10:40 | DVHPN2 ---
Reviewed: Care Plan, H&P, Labs, Medications, Previous Orders, Radiology Changes from previous H/P or p: No Changes Objective Vitals Vital Signs Date Time Temp Pulse Resp B/P (MAP) Pulse Ox O2 Delivery O2 Flow Rate FiO2 02/06/25 09:00 98.4 59 20 100/64 (76) 99 98.4 02/05/25 20:00 Room Air* 0 21 Intake/Output Intake and Output 02/06/25 07:00 Intake Total 975 ml Balance 975 ml Intake Oral 975 ml # Voids 5 Medications Current Medications Medications Dose Ordered Sig/Pradip Route Start Time Stop Time Status Last Admin Dose Admin Benazepril HCl 20 mg DAILY PO 02/04/25 10:00 02/06/25 08:45 20 MG Hydrochlorothiazide 25 mg QAM PO 02/04/25 07:00 02/04/25 05:52 25 MG Atorvastatin Calcium 20 mg HS PO 02/03/25 22:00 02/05/25 21:08 20 MG Aspirin 81 mg DAILY PO 02/04/25 10:00 02/06/25 08:45 81 MG Ondansetron HCl 4 mg Q4HP PRN IV 02/03/25 19:15 Acetaminophen 650 mg Q6HP PRN PO 02/03/25 19:15 02/04/25 05:56 650 MG Nitroglycerin 0.4 mg Q5MINP PRN SL 02/03/25 19:15 Morphine Sulfate 2 mg Q30M PRN IV 02/03/25 19:15 Trazodone HCl 100 mg HS PO 02/05/25 22:00 02/05/25 21:08 100 MG Laboratory Results Laboratory Tests 02/03/25 16:32 02/04/25 05:49 Labs and/or images reviewed: Labs reviewed by me, Image(s) reviewed by me Assessment/Plan Assessment/Plan Unstable angina: Treatment per ACS protocol, troponin negative x3, cardiology consult appreciated echo 60 % ejection fraction stress test negative, no further cardiac work up Hypertension CAD Hypercholesterolemia Anxiety Plan discussed with: Patient My Orders Orders - LOLI JIMENEZ MD Procedure Category Date Status Time Trazodone Hcl PHA 02/05/25 In Process (Desyrel) 22:00 Date of Service: February 06, 2025 Billing Provider: LOLI JIMENEZ MD Common Visit Codes: [id number] INP/OBS CARE(HIGH) LOLI JIMENEZ MD February 06, 2025 10:40
[2025-02-06] MEDS ORDERED: ASPI-628 PO (10:42)
--- NOTE | 2025-02-06 10:45 | DVHDS2 ---
Discharge Summary Date of Admission February 03, 2025 at 19:05 Date of Discharge: February 06, 2025 Admitting Diagnosis Chest pain Wounds: None Labs/Diagnostic Data: Laboratory Results Test 02/04/25 05:49 02/03/25 19:26 02/03/25 16:32 Sodium Level 141 mmol/L (136-145) Potassium Level 3.8 mmol/L (3.5-5.1) Chloride Level 105 mmol/L (98-107) Carbon Dioxide Level 28 mmol/L (20-31) Anion Gap 8 (5-15) Blood Urea Nitrogen 18 mg/dL (9-23) Creatinine 0.99 mg/dL (0.700-1.30) Glomerular Filtration Rate Calc 83 mL/min (>90) BUN/Creatinine Ratio 18.2 (10.0-20.0) Serum Glucose 89 mg/dL (74-106) Hemoglobin A1c 5.1 % A1C (<5.7) Calcium Level 9.1 mg/dL (8.7-10.4) Magnesium Level 2.2 mg/dL (1.6-2.6) B-Type Natriuretic Peptide 17.57 pg/mL (0-100) Troponin I High Sensitivity < 3 ng/L (</=54) White Blood Count 7.1 10^3/uL (4.4-10.8) Red Blood Count 4.73 10^6/uL (4.5-5.90) Hemoglobin 15.6 g/dL (13.5-17.5) Hematocrit 46.1 % (41.0-53.0) Mean Corpuscular Volume 97.4 fL (80.0-100.0) Mean Corpuscular Hemoglobin 33.1 pg (28.0-32.0) Mean Corpuscular Hemoglobin Concent 33.9 g/dL (32.0-36.0) Red Cell Distribution Width 13.4 % (11.8-14.3) Platelet Count 240 10^3/uL (140-450) Mean Platelet Volume 8.1 fL (6.9-10.8) Neutrophils (%) (Auto) 76.4 % (37.0-80.0) Lymphocytes (%) (Auto) 13.7 % (10.0-50.0) Monocytes (%) (Auto) 8.4 % (0.0-12.0) Eosinophils (%) (Auto) 0.9 % (0.0-7.0) Basophils (%) (Auto) 0.6 % (0.0-2.0) Neutrophils # (Auto) 5.4 10 ^3/uL (1.6-8.6) Lymphocytes # (Auto) 1.0 10 ^3/uL (0.4-5.4) Monocytes # (Auto) 0.6 10 ^3/uL (0-1.3) Eosinophils # (Auto) 0.1 10 ^3/uL (0-0.8) Basophils # (Auto) 0 10 ^3/uL (0-0.2) Nucleated Red Blood Cells 0.2 % Triglycerides Level 85 mg/dL (< 150) Cholesterol Level 116 mg/dL (< 200) LDL Cholesterol 42 mg/dL (< 100) HDL Cholesterol 55 mg/dL (40-59) Thyroid Stimulating Hormone (TSH) 0.60 uIU/mL (0.55-4.78) Other Laboratory Tests 02/04/25 05:49 02/03/25 16:32 Brief Hx & Hospital Course: 69-year-old male with a history of hypertension hypercholesterolemia coronary artery disease anxiety came in for chest pain. Troponin negative x3 echo 60 percent ejection fraction Cardiolite stress test negative seen by cardiology cleared for discharge no further cardiac workup. At the time of discharge vital signs are stable and patient asymptomatic reviewed all home medications. Prescription for baby aspirin sent to the pharmacy. Consults/Reason for consult Cardiology Operations or Procedures Echocardiogram Cardiolite stress test Condition at Discharge: Fair Final Diagnosis/Problems List Unstable angina: Treatment per ACS protocol, troponin negative x3, cardiology consult appreciated echo 60 % ejection fraction stress test negative, no further cardiac work up Hypertension CAD Hypercholesterolemia Anxiety Discharge Disposition: Home Discharge Instruct/Medications Diet: Cardiac 2g Na,low cholest Activity: Light activity Follow Up/Referral: Resume All previous home medications Follow up with your primary Dr Medications: Aspirin Transmitted to the pharmacy Reviewed all home medications 35 (Time taken for discharge summary 35 minutes) Discharge Statement: "Patient was advised to return to the ER or call 911 if any headaches, dizziness, shortness of breath, chest pain, abdominal pain, bleeding, fevers, or worsening of medical condition. Patient was counseled about treatment plan, medications, possible side effects, patientverbalized understanding. All questions were answered to the best of my ability. This discharge took greater then 30 minutes in planning, reviewing documentation, counseling the patient, and discussing with other team members." ASSESSMENT ASSESSMENT Hospital Course Improved Assessment Unstable angina: Treatment per ACS protocol, troponin negative x3, cardiology consult appreciated echo 60 % ejection fraction stress test negative, no further cardiac work up Hypertension CAD Hypercholesterolemia Anxiety Date of Service: February 06, 2025 Billing Provider: LOLI JIMENEZ MD Common Visit Codes: [id number] DISCH DAY >30min LOLI JIMENEZ MD February 06, 2025 10:45
[2025-02-06 13:20] VITALS: BP 95/71; PULSE 60; RESP 18; TEMP 98.3; O2SAT 96
== END 2025-02-06 14:16 | disposition home or self-care (01) | DRG 303 ==
LOC: ER 16:17 → OVERFLOW 19:05 → TELE-WESTW 23:59
PROVIDERS: ADMIT Family Medicine; ATTEND Family Medicine
DX: I25.110 Atherosclerotic heart disease of native coronary artery with unstable angina pectoris (principal); I10 Essential (primary) hypertension; J45.909 Unspecified asthma, uncomplicated; I44.4 Left anterior fascicular block; F41.9 Anxiety disorder, unspecified; E78.00 Pure hypercholesterolemia, unspecified; Z88.0 Allergy status to penicillin
CPT/HCPCS: 36415; 71045; 78452; 80048; 80061; 83036; 83735; 83880; 84443; 84484; 85025; 93005; 93017; 93306; 99291; G0378